=== PATIENT | male | born 1955 | race Caucasian/White ===

== ENCOUNTER 2018-02-05 22:59 | Inpatient (IN) | payer MEDICAID, OTHER ==
[~2018-02-05] VITALS: Ht 182.9 cm; Wt 144.4 kg
[2018-02-06] VITALS (8 sets, daily range): BP systolic 141–186; BP diastolic 98–115
[2018-02-06] MEDS ORDERED: MEPERIDINE HCL (50 MG/ML) 1 ML VIAL IV ONE ×2 (01:30→09:00)
[2018-02-06 01:53] LABS: Basophils # (auto) 0.1 uL; Eosinophils # (auto) 0.2 uL; Eosinophils % (auto) 2.3 % (0.0-7.0); Hematocrit 40.3 % (41.0-53.0); Hemoglobin 13.6 g/dL (13.5-17.5); Lymphocytes # (auto) 2.2 uL; Lymphocytes % (auto) 32.6 % (10.0-50.0); Mean Corpuscular Hemoglobin 33.3 pg (28.0-32.0); Mean Corpuscular Hgb Conc. 33.8 g/dL (32.0-36.0); Mean Corpuscular Volume 98.5 fL (80.0-100.0); Monocytes # (auto) 0.4 uL; Monocytes % (auto) 5.9 % (0.0-12.0); Neutrophils % (auto) 58.2 % (37.0-80.0); Nucleated Red Blood Cells % 0.1 %; Platelet Count (auto) 213 10^3/uL (140-450); Red Blood Cells 4.09 10^6/uL (4.5-5.90); Red Cell Distribution Width 16.4 % (11.8-14.3); White Blood Cell 6.9 10^3/uL (4.4-10.8)
[2018-02-06 02:16] LABS: Alkaline Phosphatase 99 U/L (45-117); Aspartate Aminotransferase 105 U/L (15-37); BUN/Creatinine Ratio 14.6; Bilirubin, Total 0.3 mg/dL (0.2-1.0); Blood Urea Nitrogen 12 mg/dL (7-18); GFR African American 122 mL/min; GFR Non-African American 101 mL/min; INR 3.74 (0.9-1.15); Partial Thromboplastin Time 41.9 sec (23.78-33.04); Prothrombin Time 37.1 sec (9.27-12.13); Total Protein 6.3 g/dL (6.4-8.2)
[2018-02-06 02:18] LABS: Alanine Aminotransferase 83 U/L (16-61); Anion Gap 9 (5-15); Calcium 7.4 mg/dL (8.5-10.1); Carbon Dioxide 26 mmol/L (21-32); Chloride 111 mmol/L (98-107); Glucose 104 mg/dL (74-106); Magnesium 1.7 mg/dL (1.6-2.6); Potassium 3.9 mmol/L (3.5-5.1); Sodium 146 mmol/L (136-145)
[2018-02-06] MEDS ORDERED: HYDROcodone-ACET 10/325MG TAB PO ONE (03:45)
[2018-02-06] MEDS ORDERED: cefTRIAXone 1GM/10ml IVPUSH 10 ML IV ONE (05:15)
[2018-02-06] MEDS ORDERED: THIAMINE INJ 100 MG, MULTIPLE VITAMIN 10 ML, FOLIC ACID 1 MG, MAGNESIUM SULF SDV 50% 8 ... IV ONE ×5 (08:00)
[2018-02-06] MEDS ORDERED: PHYTONADIONE ORAL Susp 10 mg/10ml PO ONE (09:30)
[2018-02-06] MEDS ORDERED: LORazepam 2MG/ML-1ML VIAL IV PRN (09:45)
[2018-02-06] MEDS ORDERED: ALUM & MAG HYDROX-SIMETH LIQ(MAALOX) 30 ML PO PRN (09:45)
[2018-02-06] MEDS ORDERED: NITROGLYCERIN 0.4 MG SL TAB SL PRN (10:15)
[2018-02-06] MEDS ORDERED: DOCUSATE SOD 100 MG CAP PO PRN (10:15)
[2018-02-06] MEDS ORDERED: MORPHINE SULFATE 8mg/ml INJ SDV IV PRN (10:15)
[2018-02-06] MEDS ORDERED: TEMAZEPAM 15 MG CAP PO PRN (10:15)
[2018-02-06] MEDS ORDERED: FUROSEMIDE 20 MG TAB PO ONE (10:15)
[2018-02-06] MEDS ORDERED: CLINDAMYCIN 300MG IV 50 ML IV SCH (10:15)
[2018-02-06] MEDS ORDERED: ONDANSETRON HCL 4 MG/2 ML VIAL IV PRN (10:15)
[2018-02-06] MEDS ORDERED: POTASSIUM CHL 10 Meq TABLET PO ONE (10:15)
[2018-02-06] MEDS ORDERED: ACETAMINOPHEN 325 MG TAB PO PRN (10:15)
[2018-02-06] MEDS: NALBUPHINE HCL 10 MG/1ml INJECTION IV PRN ×2 (12:00→18:45)
[2018-02-06] MEDS: BOOST PLUS 8 ounce PO SCH ×2 (12:00→17:37)
[2018-02-06] MEDS: ATENOLOL 25 MG TAB PO SCH ×2 (12:01→21:16)
[2018-02-06] MEDS: clonazePAM 0.5 MG TAB PO SCH ×2 (12:01→21:20)
[2018-02-06] MEDS ORDERED: ATEN50TA PO (12:36)
[2018-02-06] MEDS ORDERED: FLUO-125 PO (12:36)
[2018-02-06] MEDS ORDERED: ATOR80TA PO (12:36)
[2018-02-06] MEDS ORDERED: CLON05T PO (12:36)
[2018-02-06] MEDS ORDERED: ASPI325T4 PO (12:36)
[2018-02-06] MEDS: SODIUM CHLOR 0.9% PF (SALINE LOCK) 10ML VIAL/SYR IV SCH ×2 (14:29→21:21)
[2018-02-06] MEDS: chlordiazePOXIDE HCL 25 MG CAP PO PRN ×2 (15:07→21:17)
[2018-02-06] MEDS: GABAPENTIN 300 MG CAP PO SCH ×2 (15:07→21:17)
[2018-02-06] MEDS: cloNIDine HCL 0.1 MG TAB PO PRN ×2 (16:29→18:45)
[2018-02-06 18:29] LABS: Urine Bacteria NONE SEEN /hpf (None Seen); Urine Blood Negative /uL (Negative); Urine Specific Gravity 1.009 (1.001-1.035); Urine WBC <1 /hpf (0 - 3)
[2018-02-06] MEDS: ATORVASTATIN 20 MG TAB PO SCH (21:15)
[2018-02-06] MEDS: ASCORBIC ACID 500 MG TAB PO SCH (21:17)
[2018-02-06] MEDS: FLUoxetine HCL 20 MG CAP PO SCH (21:19)
[2018-02-06] MEDS: CLINDAMYCIN 300MG IV 50 ML IV SCH (21:20)
[2018-02-06] MEDS: HYDROcodone-ACET 5/325MG TAB PO PRN (22:04)
[2018-02-07] MEDS: HYDROcodone-ACET 5/325MG TAB PO PRN ×4 (02:39→18:14)
[2018-02-07 05:00] VITALS: BP 155/92
[2018-02-07] MEDS: CLINDAMYCIN 300MG IV 50 ML IV SCH ×3 (05:24→21:15)
[2018-02-07] MEDS: chlordiazePOXIDE HCL 25 MG CAP PO PRN (05:25)
[2018-02-07] MEDS: SODIUM CHLOR 0.9% PF (SALINE LOCK) 10ML VIAL/SYR IV SCH ×3 (05:25→21:15)
[2018-02-07] MEDS: GABAPENTIN 300 MG CAP PO SCH ×3 (05:26→21:16)
[2018-02-07 05:46] LABS: Basophils # (auto) 0 uL; Basophils % (auto) 0.5 % (0.0-2.0); Eosinophils # (auto) 0.1 uL; Eosinophils % (auto) 1.9 % (0.0-7.0); Hematocrit 38.6 % (41.0-53.0); Hemoglobin 13.2 g/dL (13.5-17.5); Lymphocytes # (auto) 1.7 uL; Lymphocytes % (auto) 27.5 % (10.0-50.0); Mean Corpuscular Hemoglobin 33.5 pg (28.0-32.0); Mean Corpuscular Hgb Conc. 34.1 g/dL (32.0-36.0); Mean Corpuscular Volume 98.1 fL (80.0-100.0); Monocytes # (auto) 0.3 uL; Monocytes % (auto) 5.2 % (0.0-12.0); Neutrophils # (auto) 4.1 uL; Neutrophils % (auto) 64.9 % (37.0-80.0); Platelet Count (auto) 163 10^3/uL (140-450); Red Blood Cells 3.93 10^6/uL (4.5-5.90); White Blood Cell 6.3 10^3/uL (4.4-10.8)
[2018-02-07 06:21] LABS: Potassium 3.5 mmol/L (3.5-5.1)
[2018-02-07 06:32] LABS: Albumin 3.4 g/dL (3.4-5.0); BUN/Creatinine Ratio 14.8; Calcium 7.8 mg/dL (8.5-10.1)
[2018-02-07 06:35] LABS: Bilirubin, Total 1.1 mg/dL (0.2-1.0); Total Protein 7.1 g/dL (6.4-8.2)
[2018-02-07] MEDS: BOOST PLUS 8 ounce PO SCH ×3 (08:00→18:00)
[2018-02-07 08:23] VITALS: BP 128/100
[2018-02-07 08:40] LABS: INR 1.63 (0.9-1.15); Partial Thromboplastin Time 31.7 sec (23.78-33.04)
[2018-02-07 09:00] VITALS: BP 126/98
[2018-02-07] MEDS: ATENOLOL 25 MG TAB PO SCH ×2 (09:46→21:17)
[2018-02-07] MEDS: MULTIPLE VITAMIN TAB PO SCH (09:47)
[2018-02-07] MEDS: FUROSEMIDE 20 MG TAB PO SCH (09:47)
[2018-02-07] MEDS: clonazePAM 0.5 MG TAB PO SCH ×2 (09:47→21:16)
[2018-02-07] MEDS: ASCORBIC ACID 500 MG TAB PO SCH ×2 (09:47→21:16)
[2018-02-07] MEDS: POTASSIUM CHL 10 Meq TABLET PO SCH (09:47)
[2018-02-07] MEDS: cefTRIAXone 1GM/10ml IVPUSH 10 ML IV SCH (09:48)
[2018-02-07 13:00] VITALS: BP 115/63
[2018-02-07] MEDS: THIAMINE INJ 100 MG, MULTIPLE VITAMIN 10 ML, FOLIC ACID 1 MG, MAGNESIUM SULF SDV 50% 8 ... IV SCH ×5 (13:15)
[2018-02-07] MEDS: chlordiazePOXIDE HCL 25 MG CAP PO SCH ×2 (13:15→18:00)
[2018-02-07] MEDS: ZINC SULFATE 220 MG CAP PO SCH (13:15)
[2018-02-07 17:00] VITALS: BP 118/76
[2018-02-07] MEDS: ATORVASTATIN 20 MG TAB PO SCH (21:16)
[2018-02-07] MEDS: FLUoxetine HCL 20 MG CAP PO SCH (21:16)
[2018-02-08] MEDS: SODIUM CHLOR 0.9% PF (SALINE LOCK) 10ML VIAL/SYR IV SCH ×3 (04:24→21:45)
[2018-02-08] MEDS: HYDROcodone-ACET 5/325MG TAB PO PRN ×5 (04:24→22:10)
[2018-02-08] MEDS: CLINDAMYCIN 300MG IV 50 ML IV SCH ×3 (04:24→20:50)
[2018-02-08 05:00] VITALS: BP 128/94
[2018-02-08] MEDS: GABAPENTIN 300 MG CAP PO SCH ×3 (05:57→21:45)
[2018-02-08] MEDS: chlordiazePOXIDE HCL 25 MG CAP PO SCH ×4 (05:57→18:24)
[2018-02-08 07:17] LABS: Basophils # (auto) 0 uL; Basophils % (auto) 0.3 % (0.0-2.0); Eosinophils # (auto) 0.3 uL; Eosinophils % (auto) 5.3 % (0.0-7.0); Hematocrit 37.6 % (41.0-53.0); Lymphocytes # (auto) 1.3 uL; Lymphocytes % (auto) 23.3 % (10.0-50.0); Mean Corpuscular Hgb Conc. 34.5 g/dL (32.0-36.0); Mean Corpuscular Volume 98.6 fL (80.0-100.0); Monocytes # (auto) 0.3 uL; Monocytes % (auto) 5.7 % (0.0-12.0); Neutrophils # (auto) 3.8 uL; Neutrophils % (auto) 65.4 % (37.0-80.0); Nucleated Red Blood Cells % 0.1 %; Platelet Count (auto) 131 10^3/uL (140-450); Red Blood Cells 3.82 10^6/uL (4.5-5.90); Red Cell Distribution Width 16.1 % (11.8-14.3); White Blood Cell 5.8 10^3/uL (4.4-10.8)
[2018-02-08 07:31] LABS: Albumin 3.1 g/dL (3.4-5.0); BUN/Creatinine Ratio 16.3; Bilirubin, Total 0.9 mg/dL (0.2-1.0); Calcium 7.9 mg/dL (8.5-10.1); Potassium 4.2 mmol/L (3.5-5.1); Total Protein 6.5 g/dL (6.4-8.2)
[2018-02-08 07:45] VITALS: BP 115/93
[2018-02-08 08:34] LABS: INR 1.13 (0.9-1.15); Partial Thromboplastin Time 28.3 sec (23.78-33.04)
[2018-02-08] MEDS: cefTRIAXone 1GM/10ml IVPUSH 10 ML IV SCH (08:47)
[2018-02-08] MEDS: BOOST PLUS 8 ounce PO SCH ×3 (08:51→18:24)
[2018-02-08 10:20] VITALS: BP 115/93
[2018-02-08] MEDS: clonazePAM 0.5 MG TAB PO SCH ×2 (10:39→21:45)
[2018-02-08] MEDS: FUROSEMIDE 20 MG TAB PO SCH (10:40)
[2018-02-08] MEDS: POTASSIUM CHL 10 Meq TABLET PO SCH (10:40)
[2018-02-08] MEDS: MULTIPLE VITAMIN TAB PO SCH (10:41)
[2018-02-08] MEDS: ASCORBIC ACID 500 MG TAB PO SCH ×2 (10:42→21:47)
[2018-02-08] MEDS: ATENOLOL 25 MG TAB PO SCH ×3 (10:42→22:09)
[2018-02-08] MEDS: ZINC SULFATE 220 MG CAP PO SCH (12:11)
[2018-02-08] MEDS: THIAMINE INJ 100 MG, MULTIPLE VITAMIN 10 ML, FOLIC ACID 1 MG, MAGNESIUM SULF SDV 50% 8 ... IV SCH ×5 (12:11)
[2018-02-08 12:28] VITALS: BP_SYST 131; BP_SYST 164; BP_DIAS 55; BP_DIAS 88
[2018-02-08 17:14] VITALS: BP 157/100
[2018-02-08] MEDS: RIVAROXABAN 20 MG TAB PO SCH (18:24)
[2018-02-08] MEDS ORDERED: CLINDAMYCIN HCL 150 MG CAP PO SCH (21:00)
[2018-02-08] MEDS: FLUoxetine HCL 20 MG CAP PO SCH (21:45)
[2018-02-08] MEDS: ATORVASTATIN 20 MG TAB PO SCH (21:45)
[2018-02-08 22:00] VITALS: BP 150/86
[2018-02-09] MEDS: chlordiazePOXIDE HCL 25 MG CAP PO SCH ×4 (00:08→18:36)
[2018-02-09] MEDS: CLINDAMYCIN 300MG IV 50 ML IV SCH ×3 (04:36→21:32)
[2018-02-09] MEDS: HYDROcodone-ACET 5/325MG TAB PO PRN ×3 (04:37→21:31)
[2018-02-09] MEDS: cloNIDine HCL 0.1 MG TAB PO PRN (04:54)
[2018-02-09 05:00] VITALS: BP 165/104
[2018-02-09 05:42] LABS: Basophils # (auto) 0 uL; Hemoglobin 12.4 g/dL (13.5-17.5); Lymphocytes # (auto) 1.7 uL; Monocytes # (auto) 0.4 uL
[2018-02-09] MEDS: SODIUM CHLOR 0.9% PF (SALINE LOCK) 10ML VIAL/SYR IV SCH ×3 (05:43→21:32)
[2018-02-09] MEDS: GABAPENTIN 300 MG CAP PO SCH ×3 (05:44→21:31)
[2018-02-09 05:45] LABS: Basophils % (auto) 0.5 % (0.0-2.0); Eosinophils # (auto) 0.4 uL; Eosinophils % (auto) 6.5 % (0.0-7.0); Hematocrit 36.3 % (41.0-53.0); Lymphocytes % (auto) 31.2 % (10.0-50.0); Mean Corpuscular Hgb Conc. 34.2 g/dL (32.0-36.0); Mean Corpuscular Volume 98.8 fL (80.0-100.0); Monocytes % (auto) 7.1 % (0.0-12.0); Neutrophils % (auto) 54.7 % (37.0-80.0); Platelet Count (auto) 118 10^3/uL (140-450); Red Blood Cells 3.68 10^6/uL (4.5-5.90); Red Cell Distribution Width 16.1 % (11.8-14.3); White Blood Cell 5.5 10^3/uL (4.4-10.8)
[2018-02-09 05:47] LABS: Mean Corpuscular Hemoglobin 34.3 pg (28.0-32.0)
[2018-02-09] MEDS: NALBUPHINE HCL 10 MG/1ml INJECTION IV PRN ×2 (05:52→17:03)
[2018-02-09 06:32] LABS: Albumin 3.1 g/dL (3.4-5.0); BUN/Creatinine Ratio 22.8; Bilirubin, Total 0.6 mg/dL (0.2-1.0); Calcium 8.6 mg/dL (8.5-10.1); Potassium 4.4 mmol/L (3.5-5.1); Total Protein 6.4 g/dL (6.4-8.2)
[2018-02-09] MEDS: BOOST PLUS 8 ounce PO SCH ×3 (08:32→18:36)
[2018-02-09] MEDS: ZINC SULFATE 220 MG CAP PO SCH (08:33)
[2018-02-09] MEDS: clonazePAM 0.5 MG TAB PO SCH ×2 (08:33→21:29)
[2018-02-09] MEDS: cefTRIAXone 1GM/10ml IVPUSH 10 ML IV SCH (08:33)
[2018-02-09] MEDS: POTASSIUM CHL 10 Meq TABLET PO SCH (08:34)
[2018-02-09] MEDS: ASCORBIC ACID 500 MG TAB PO SCH ×2 (08:35→21:31)
[2018-02-09] MEDS: FUROSEMIDE 20 MG TAB PO SCH (08:35)
[2018-02-09] MEDS: MULTIPLE VITAMIN TAB PO SCH (08:35)
[2018-02-09] MEDS: ATENOLOL 25 MG TAB PO SCH ×2 (08:35→21:47)
[2018-02-09 09:00] VITALS: BP 156/89
[2018-02-09] MEDS: THIAMINE INJ 100 MG, MULTIPLE VITAMIN 10 ML, FOLIC ACID 1 MG, MAGNESIUM SULF SDV 50% 8 ... IV SCH ×5 (12:44)
[2018-02-09 13:00] VITALS: BP 140/73
[2018-02-09 17:00] VITALS: BP 127/80
[2018-02-09] MEDS: RIVAROXABAN 20 MG TAB PO SCH (18:36)
[2018-02-09] MEDS: FLUoxetine HCL 20 MG CAP PO SCH (21:30)
[2018-02-09] MEDS: ATORVASTATIN 20 MG TAB PO SCH (21:30)
[2018-02-09 22:00] VITALS: BP 136/79
[2018-02-10] MEDS: chlordiazePOXIDE HCL 25 MG CAP PO SCH ×3 (00:29→13:13)
[2018-02-10] MEDS: NALBUPHINE HCL 10 MG/1ml INJECTION IV PRN ×2 (00:29→07:12)
[2018-02-10] MEDS: HYDROcodone-ACET 5/325MG TAB PO PRN (04:58)
[2018-02-10] MEDS: CLINDAMYCIN 300MG IV 50 ML IV SCH ×2 (04:58→13:00)
[2018-02-10 05:00] VITALS: BP 155/101
[2018-02-10] MEDS: SODIUM CHLOR 0.9% PF (SALINE LOCK) 10ML VIAL/SYR IV SCH ×2 (05:18→14:00)
[2018-02-10 05:45] LABS: Albumin 3.2 g/dL (3.4-5.0); BUN/Creatinine Ratio 18.1; Bilirubin, Total 1.1 mg/dL (0.2-1.0); Calcium 8.5 mg/dL (8.5-10.1); Potassium 4.3 mmol/L (3.5-5.1); Total Protein 6.5 g/dL (6.4-8.2)
[2018-02-10] MEDS: GABAPENTIN 300 MG CAP PO SCH ×2 (05:57→14:00)
[2018-02-10 08:00] VITALS: BP 126/99
[2018-02-10 08:13] VITALS: BP 126/99
[2018-02-10] MEDS: cefTRIAXone 1GM/10ml IVPUSH 10 ML IV SCH (09:40)
[2018-02-10] MEDS: BOOST PLUS 8 ounce PO SCH ×2 (09:40→12:44)
[2018-02-10] MEDS: ASCORBIC ACID 500 MG TAB PO SCH (09:41)
[2018-02-10] MEDS: clonazePAM 0.5 MG TAB PO SCH (09:42)
[2018-02-10] MEDS: FUROSEMIDE 20 MG TAB PO SCH (09:42)
[2018-02-10] MEDS: POTASSIUM CHL 10 Meq TABLET PO SCH (09:42)
[2018-02-10] MEDS: ATENOLOL 25 MG TAB PO SCH (09:42)
[2018-02-10] MEDS: ZINC SULFATE 220 MG CAP PO SCH (09:42)
[2018-02-10] MEDS: MULTIPLE VITAMIN TAB PO SCH (09:42)
[2018-02-10] MEDS: THIAMINE INJ 100 MG, MULTIPLE VITAMIN 10 ML, FOLIC ACID 1 MG, MAGNESIUM SULF SDV 50% 8 ... IV SCH ×5 (12:00)
== END 2018-02-10 14:40 | disposition home or self-care (01) | DRG 194 ==
LOC: ER 22:59 → EDBD 22:59 → TELE 23:00 → TELE-WESTW 02-06 11:32
PROVIDERS: ADMIT Internal Medicine; ATTEND Internal Medicine
PROC: 30233L1 Transfusion of Nonautologous Fresh Plasma into Peripheral Vein, Percutaneous Approach (ICD-10-PCS; principal; 2018-02-06)
PROC: 30233K1 Transfusion of Nonautologous Frozen Plasma into Peripheral Vein, Percutaneous Approach (ICD-10-PCS; 2018-02-06)
DX: I11.0 Hypertensive heart disease with heart failure (principal); G92 Toxic encephalopathy; G93.1 Anoxic brain damage, not elsewhere classified; E44.0 Moderate protein-calorie malnutrition; D68.9 Coagulation defect, unspecified; E87.0 Hyperosmolality and hypernatremia; Z68.41 Body mass index [BMI] 40.0-44.9, adult; S00.83XA Contusion of other part of head, initial encounter; I50.9 Heart failure, unspecified; F10.239 Alcohol dependence with withdrawal, unspecified; E83.51 Hypocalcemia; W01.0XXA Fall on same level from slipping, tripping and stumbling without subsequent striking against object, initial encounter; T45.515A Adverse effect of anticoagulants, initial encounter; Y90.8 Blood alcohol level of 240 mg/100 ml or more; E78.5 Hyperlipidemia, unspecified; I70.0 Atherosclerosis of aorta; M47.892 Other spondylosis, cervical region; M48.02 Spinal stenosis, cervical region; F32.9 Major depressive disorder, single episode, unspecified; R79.89 Other specified abnormal findings of blood chemistry; S00.532A Contusion of oral cavity, initial encounter; W18.39XA Other fall on same level, initial encounter; R94.5 Abnormal results of liver function studies; F10.229 Alcohol dependence with intoxication, unspecified; F17.210 Nicotine dependence, cigarettes, uncomplicated; I07.1 Rheumatic tricuspid insufficiency; I25.10 Atherosclerotic heart disease of native coronary artery without angina pectoris; I25.2 Old myocardial infarction; Y92.89 Other specified places as the place of occurrence of the external cause; Z80.1 Family history of malignant neoplasm of trachea, bronchus and lung; Z86.718 Personal history of other venous thrombosis and embolism; Z91.19 Patient's noncompliance with other medical treatment and regimen; Z95.1 Presence of aortocoronary bypass graft; Y93.89 Activity, other specified; Y99.8 Other external cause status
CPT/HCPCS: 36415; 36430; 70450; 70486; 71045; 72125; 80053; 80320; 81001; 83735; 83880; 84484; 85025; 85610; 85730; 86850; 86900; 86901; 87040; 87086; 93005; 93306; 93970; 96365; 96375; 97110; 97116; 97530; J3490

== ENCOUNTER 2018-05-14 15:46 | Observation (INO) | payer MEDICAID, OTHER ==
[~2018-05-14] VITALS: Ht 185.4 cm; Wt 99.8 kg
[~2018-05-14 15:46] MED LIST: ASPI325T4 PO; ATEN50TA PO; ATOR80TA PO; CLON05T PO; FLUO-125 PO
[2018-05-14] MEDS ORDERED: SODIUM CHLORIDE 0.9% 1,000 ML IVB ONE (16:18)
[2018-05-14] MEDS ORDERED: TETANUS-DIPTH-ACEL PERTUSSIS 0.5ML SYRG IM ONE (16:30)
[2018-05-14 16:52] LABS: Basophils # (auto) 0 uL; Eosinophils # (auto) 0.2 uL; Hemoglobin 12.5 g/dL (13.5-17.5); Nucleated Red Blood Cells % 0.1 %; Red Cell Distribution Width 15.2 % (11.8-14.3)
[2018-05-14 16:53] LABS: Basophils % (auto) 0.6 % (0.0-2.0); Eosinophils % (auto) 3.4 % (0.0-7.0); Hematocrit 37.5 % (41.0-53.0); Lymphocytes # (auto) 2.3 uL; Lymphocytes % (auto) 36.2 % (10.0-50.0); Mean Corpuscular Hemoglobin 34.1 pg (28.0-32.0); Mean Corpuscular Hgb Conc. 33.2 g/dL (32.0-36.0); Mean Corpuscular Volume 102.6 fL (80.0-100.0); Monocytes # (auto) 0.4 uL; Neutrophils # (auto) 3.4 uL; Neutrophils % (auto) 53.8 % (37.0-80.0); Platelet Count (auto) 268 10^3/uL (140-450); Red Blood Cells 3.66 10^6/uL (4.5-5.90); White Blood Cell 6.3 10^3/uL (4.4-10.8)
[2018-05-14 17:04] LABS: Partial Thromboplastin Time 23.6 sec (23.78-33.04); Prothrombin Time 10.7 sec (9.27-12.13)
[2018-05-14 17:25] LABS: Alanine Aminotransferase 19 U/L (16-61); Albumin 3.2 g/dL (3.4-5.0); Alkaline Phosphatase 102 U/L (45-117); Anion Gap 12 (5-15); Aspartate Aminotransferase 16 U/L (15-37); BUN/Creatinine Ratio 12.9; Bilirubin, Total 0.1 mg/dL (0.2-1.0); Blood Urea Nitrogen 15 mg/dL (7-18); Calcium 7.8 mg/dL (8.5-10.1); Carbon Dioxide 20 mmol/L (21-32); Chloride 110 mmol/L (98-107); GFR African American 82 mL/min; GFR Non-African American 68 mL/min; Glucose 70 mg/dL (74-106); Magnesium 2.1 mg/dL (1.6-2.6); Potassium 3.8 mmol/L (3.5-5.1); Sodium 142 mmol/L (136-145); Total Protein 6.5 g/dL (6.4-8.2)
[2018-05-14 18:55] LABS: Amphetamine Screen, Urine NEGATIVE (NEGATIVE); Barbiturate Scree,Urine NEGATIVE (NEGATIVE); Benzodiazephine Screen, Urine NEGATIVE (NEGATIVE); Cannabinoid Screen, Urine NEGATIVE (NEGATIVE); Cocaine Screen, Urine NEGATIVE (NEGATIVE); Opiate Scree,Urine NEGATIVE (NEGATIVE); Phencyclidine Screen, Urine NEGATIVE (NEGATIVE)
[2018-05-14 19:00] LABS: Urine Bacteria FEW /hpf (None Seen); Urine Blood Negative /uL (Negative); Urine Mucus FEW (None Seen); Urine Specific Gravity 1.009 (1.001-1.035); Urine WBC 3 /hpf (0 - 3)
[2018-05-14] MEDS ORDERED: THIAMINE INJ 100 MG, MULTIPLE VITAMIN 10 ML, FOLIC ACID 1 MG, MAGNESIUM SULF SDV 50% 8 ... IV ONE ×5 (19:30)
[2018-05-15 00:42] VITALS: BP 102/71
[2018-05-15] MEDS ORDERED: THIAMINE INJ 100 MG, MULTIPLE VITAMIN 10 ML, FOLIC ACID 1 MG, MAGNESIUM SULF SDV 50% 8 ... IV SCH ×5 (12:00)
== END 2018-05-15 01:03 | disposition home or self-care (01) | DRG 55 ==
LOC: EDBD 15:46 → EDUNIT# 15:46 → ER 15:50 → OVERFLOW 15:51 → ER 05-15 01:03
PROVIDERS: ADMIT Family Medicine; ATTEND Family Medicine
DX: S06.5X9A Traumatic subdural hemorrhage with loss of consciousness of unspecified duration, initial encounter (principal); E78.5 Hyperlipidemia, unspecified; S00.83XA Contusion of other part of head, initial encounter; F10.129 Alcohol abuse with intoxication, unspecified; I10 Essential (primary) hypertension; F17.210 Nicotine dependence, cigarettes, uncomplicated; I25.10 Atherosclerotic heart disease of native coronary artery without angina pectoris; Z95.1 Presence of aortocoronary bypass graft; W18.39XA Other fall on same level, initial encounter; Y92.89 Other specified places as the place of occurrence of the external cause; Y93.89 Activity, other specified; Y99.9 Unspecified external cause status
CPT/HCPCS: 36415; 70450; 70486; 71045; 80053; 80307; 80320; 81001; 83735; 84484; 85025; 85610; 85730; 90471; 90715; 93005; 96365; 96366; 99291; G0378; J3411; J3475; J7030

== ENCOUNTER 2022-11-07 20:37 | Emergency (ER) | payer OTHER, MEDICAID ==
[~2022-11-07] VITALS: Ht 190.5 cm; Wt 129.5 kg
[~2022-11-07 20:37] MED LIST changes: +CLON0.5T3 PO; -CLON05T PO
[2022-11-07 21:00] VITALS: BP 128/95
== END 2022-11-07 23:45 | disposition home or self-care (01) ==
LOC: ER 20:39
DX: M62.831 Muscle spasm of calf (principal); I25.10 Atherosclerotic heart disease of native coronary artery without angina pectoris; E78.5 Hyperlipidemia, unspecified; F17.210 Nicotine dependence, cigarettes, uncomplicated; I10 Essential (primary) hypertension; Z98.890 Other specified postprocedural states; Z79.82 Long term (current) use of aspirin
CPT/HCPCS: 93005; 93971